=== PATIENT | female | born 1935 | race Caucasian/White ===

== ENCOUNTER 2016-07-03 20:23 | Inpatient (IN) | payer MEDICARE, OTHER ==
[~2016-07-03] VITALS: Ht 167.6 cm; Wt 67.1 kg
[~2016-07-03 20:23] MED LIST: DONE5TAB34 PO; NITR100C PO
[2016-07-03 21:10] LABS: BASOPHILS # (AUTO) 0.1 /CMM (0.0-0.2); BASOPHILS % (AUTO) 0.6 % (0.0-2.0); DIFF TOTAL % 100 %; EOSINOPHILS # (AUTO) 0.4 /CMM (0.0-0.7); EOSINOPHILS % (AUTO) 4.8 % (0.0-6.0); HEMATOCRIT 40 % (33-45); HEMOGLOBIN 13.4 g/dL (11.5-14.8); LYMPHOCYTES # (AUTO) 1.4 /CMM (0.8-4.8); LYMPHOCYTES % (AUTO) 16.2 % (20.0-44.0); MEAN CORPUSCULAR HEMOGLOBIN 29 PG (26.0-33.0); MEAN CORPUSCULAR HGB CONC 33 g/dl (31.0-36.0); MEAN CORPUSCULAR VOLUME 87 fL (82-100); MONOCYTES # (AUTO) 0.8 /CMM (0.1-1.30); MONOCYTES % (AUTO) 9.2 % (2.0-12.0); NEUTROPHILS % (AUTO) 69.2 % (43.0-81.0); PLATELET COUNT (AUTO) 130 /CMM (150-450); RED BLOOD CELL COUNT(AUTO) 4.65 MIL/uL (4.0-5.2); WHITE BLOOD COUNT (AUTO) 8.7 K/uL (4.3-11.0)
[2016-07-03 21:29] LABS: ANION GAP 11 (5-14); CALCIUM, SERUM 9.5 mg/dL (8.5-10.1); CARBON DIOXIDE 29 mmol/L (21-32); CHLORIDE 104 mmol/L (98-107); CREATININE 1.2 mg/dL (0.6-1.3); GLUCOSE 158 mg/dL (74-106); POTASSIUM 4.2 mmol/L (3.5-5.1); SODIUM SERUM 140 mmol/L (136-145); UREA NITROGEN, BLOOD 32 mg/dL (7-18)
[2016-07-03 21:32] LABS: INR 0.94 (0.87-1.13); PROTHROMBIN TIME 9.9 SECS (9.5-12.7)
[2016-07-03 21:35] LABS: ALANINE AMINOTRANSFERASE 17 U/L (12-78); ALBUMIN 3.3 g/dL (3.4-5.0); ASPARTATE AMINOTRANSFERASE 16 U/L (15-37); BILIRUBIN,DIRECT 0.1 mg/dL (0.0-0.2); BILIRUBIN,TOTAL 0.5 mg/dL (0.2-1.0); INDIRECT BILIRUBIN 0.4 mg/dL (0.0-1.1); TOTAL PROTEIN, SERUM 7.4 g/dL (6.4-8.2)
[2016-07-03 21:37] LABS: TROPONIN I < 0.017 ng/mL (0.00-0.056)
[2016-07-03 21:49] LABS: KETONES,URINE Negative (NEGATIVE); LEUKOCYTE ESTERASE ,URINE Trace (NEGATIVE)
[2016-07-03 21:56] LABS: ADD UA MICROSCOPIC YES
[2016-07-03 21:59] LABS: ADD URINE CULTURE YES; WBC,URINE 21-50 /HPF (0-3)
[2016-07-03 22:09] LABS: *LACTIC ACID REFLEX FLAG YES
[2016-07-03] MEDS ORDERED: IV NS 0.9% 500 ML IV ONE (22:36)
[2016-07-03] MEDS ORDERED: IV SET PRIMARY PUMP SET 1 EA INFUS.SET MC ONE (22:36)
[2016-07-03] MEDS ORDERED: LEVOFLOXACIN 750 MG /D5W 150ML 150 ML IV ONE ×2 (22:36→23:00)
[2016-07-03] MEDS ORDERED: DENO60DI SQ (22:47)
[2016-07-03] MEDS ORDERED: CLON0.5T4 PO (22:47)
[2016-07-03] MEDS ORDERED: AMLO5TAB2 PO (22:47)
[2016-07-03] MEDS ORDERED: QUET25TA PO (22:47)
[2016-07-03] MEDS ORDERED: IV NS 0.9% 500 ML BAG IV ONE (23:00)
[2016-07-04 00:30] VITALS: BP 118/54
[2016-07-04] MEDS ORDERED: ENOXAPARIN SODIUM 60 MG/0.6 ML DISP.SYRIN SQ ONE (01:36)
[2016-07-04] MEDS ORDERED: ENOXAPARIN SODIUM 60 MG/0.6 ML DISP.SYRIN SQ SCH ×2 (02:00→07:50)
[2016-07-04 07:52] LABS: CALCIUM, SERUM 8.6 mg/dL (8.5-10.1); CREATININE 0.9 mg/dL (0.6-1.3); POTASSIUM 4.2 mmol/L (3.5-5.1)
[2016-07-04 08:00] VITALS: BP 123/62
[2016-07-04] MEDS ORDERED: ACETAMINOPHEN 325 MG TABLET PO PRN (08:00)
[2016-07-04] MEDS ORDERED: ONDANSETRON HCL/PF 4 MG/2 ML VIAL IVP PRN (08:00)
[2016-07-04 08:05] LABS: BASOPHILS % (AUTO) 0.3 % (0.0-2.0); DIFF TOTAL % 100 %; EOSINOPHILS # (AUTO) 0.3 /CMM (0.0-0.7); EOSINOPHILS % (AUTO) 4.4 % (0.0-6.0); HEMATOCRIT 36 % (33-45); HEMOGLOBIN 11.9 g/dL (11.5-14.8); LYMPHOCYTES # (AUTO) 1.1 /CMM (0.8-4.8); LYMPHOCYTES % (AUTO) 14.1 % (20.0-44.0); MEAN CORPUSCULAR HEMOGLOBIN 29 PG (26.0-33.0); MEAN CORPUSCULAR HGB CONC 34 g/dl (31.0-36.0); MEAN CORPUSCULAR VOLUME 88 fL (82-100); MONOCYTES # (AUTO) 0.8 /CMM (0.1-1.30); NEUTROPHILS # (AUTO) 5.6 /CMM (1.8-8.9); NEUTROPHILS % (AUTO) 71.2 % (43.0-81.0); PLATELET COUNT (AUTO) 138 /CMM (150-450); RED BLOOD CELL COUNT(AUTO) 4.04 MIL/uL (4.0-5.2); WHITE BLOOD COUNT (AUTO) 7.9 K/uL (4.3-11.0)
[2016-07-04] MEDS: ENOXAPARIN SODIUM 60 MG/0.6 ML DISP.SYRIN SQ SCH ×2 (08:44→22:58)
[2016-07-04] MEDS: AMLODIPINE BESYLATE 5 MG TABLET PO SCH (13:16)
[2016-07-04] MEDS ORDERED: clonazePAM 0.5 MG TABLET PO PRN (13:30)
[2016-07-04 15:53] VITALS: BP 125/65
[2016-07-04 16:00] VITALS: BP 125/65
[2016-07-04] MEDS ORDERED: IOHEXOL-350 100 ML VIAL IV ONE (17:59)
[2016-07-04] MEDS ORDERED: IV NS 0.9% 250 ML IV ONE (17:59)
[2016-07-04] MEDS ORDERED: CT SWABBABLE VALVE TRANS SET 1 EA INFUS.SET MC ONE (17:59)
[2016-07-04] MEDS: QUETIAPINE FUMARATE 25 MG TABLET PO SCH (18:40)
[2016-07-04 20:00] VITALS: BP 131/63
[2016-07-04] MEDS ORDERED: LEVOFLOXACIN 500 MG /D5W 100ML 500 MG in PREMIX 1 EA IV SCH (22:00)
[2016-07-04] MEDS: DONEPEZIL 5 MG TABLET PO SCH (22:00)
[2016-07-04] MEDS ORDERED: IV SET PRIMARY PUMP SET 1 EA INFUS.SET MC ONE (22:52)
[2016-07-05 04:00] VITALS: BP 128/73
[2016-07-05] MEDS: QUETIAPINE FUMARATE 25 MG TABLET PO SCH ×4 (06:00→17:01)
[2016-07-05 06:43] LABS: BASOPHILS % (AUTO) 0.5 % (0.0-2.0); DIFF TOTAL % 100 %; EOSINOPHILS # (AUTO) 0.3 /CMM (0.0-0.7); EOSINOPHILS % (AUTO) 5.2 % (0.0-6.0); HEMATOCRIT 37 % (33-45); HEMOGLOBIN 12.2 g/dL (11.5-14.8); LYMPHOCYTES % (AUTO) 15.5 % (20.0-44.0); MEAN CORPUSCULAR HEMOGLOBIN 29 PG (26.0-33.0); MEAN CORPUSCULAR HGB CONC 33 g/dl (31.0-36.0); MEAN CORPUSCULAR VOLUME 87 fL (82-100); MONOCYTES # (AUTO) 0.6 /CMM (0.1-1.30); MONOCYTES % (AUTO) 9.5 % (2.0-12.0); NEUTROPHILS # (AUTO) 4.6 /CMM (1.8-8.9); NEUTROPHILS % (AUTO) 69.3 % (43.0-81.0); PLATELET COUNT (AUTO) 157 /CMM (150-450); WHITE BLOOD COUNT (AUTO) 6.7 K/uL (4.3-11.0)
[2016-07-05 06:55] LABS: CALCIUM, SERUM 8.2 mg/dL (8.5-10.1); CREATININE 0.9 mg/dL (0.6-1.3); POTASSIUM 3.7 mmol/L (3.5-5.1)
[2016-07-05 08:00] VITALS: BP 125/64
[2016-07-05] MEDS: PANTOPRAZOLE 40 MG TABLET.DR PO SCH (08:13)
[2016-07-05] MEDS: ENOXAPARIN SODIUM 60 MG/0.6 ML DISP.SYRIN SQ SCH ×2 (08:13→22:53)
[2016-07-05] MEDS: AMLODIPINE BESYLATE 5 MG TABLET PO SCH (08:13)
[2016-07-05] MEDS: SULFAMETH/TRIMETH 800/160 MG 1 UDTAB TABLET PO SCH ×2 (13:32→22:52)
[2016-07-05 16:00] VITALS: BP 116/63
[2016-07-05 20:00] VITALS: BP_SYST 111; BP_DIAS 46; BP_DIAS 66
[2016-07-05] MEDS: DONEPEZIL 5 MG TABLET PO SCH (22:52)
[2016-07-06] MEDS: QUETIAPINE FUMARATE 25 MG TABLET PO SCH ×4 (00:59→18:01)
[2016-07-06 04:00] VITALS: BP 120/66
[2016-07-06 06:39] LABS: BASOPHILS % (AUTO) 0.5 % (0.0-2.0); DIFF TOTAL % 100 %; EOSINOPHILS # (AUTO) 0.3 /CMM (0.0-0.7); EOSINOPHILS % (AUTO) 5.3 % (0.0-6.0); HEMATOCRIT 38 % (33-45); HEMOGLOBIN 12.5 g/dL (11.5-14.8); LYMPHOCYTES # (AUTO) 1.4 /CMM (0.8-4.8); LYMPHOCYTES % (AUTO) 25.6 % (20.0-44.0); MEAN CORPUSCULAR HEMOGLOBIN 29 PG (26.0-33.0); MEAN CORPUSCULAR HGB CONC 33 g/dl (31.0-36.0); MEAN CORPUSCULAR VOLUME 87 fL (82-100); MONOCYTES # (AUTO) 0.6 /CMM (0.1-1.30); NEUTROPHILS # (AUTO) 3.1 /CMM (1.8-8.9); NEUTROPHILS % (AUTO) 57.6 % (43.0-81.0); PLATELET COUNT (AUTO) 161 /CMM (150-450); WHITE BLOOD COUNT (AUTO) 5.4 K/uL (4.3-11.0)
[2016-07-06 06:48] LABS: CALCIUM, SERUM 8.4 mg/dL (8.5-10.1); CREATININE 1.1 mg/dL (0.6-1.3); POTASSIUM 4.1 mmol/L (3.5-5.1)
[2016-07-06 08:00] VITALS: BP 110/56
[2016-07-06] MEDS: AMLODIPINE BESYLATE 5 MG TABLET PO SCH (09:00)
[2016-07-06] MEDS: ENOXAPARIN SODIUM 60 MG/0.6 ML DISP.SYRIN SQ SCH ×2 (09:48→21:28)
[2016-07-06] MEDS: PANTOPRAZOLE 40 MG TABLET.DR PO SCH (09:48)
[2016-07-06] MEDS: SULFAMETH/TRIMETH 800/160 MG 1 UDTAB TABLET PO SCH ×2 (09:50→21:27)
[2016-07-06 16:00] VITALS: BP 132/56
[2016-07-06 20:00] VITALS: BP 135/66
[2016-07-06] MEDS: DONEPEZIL 5 MG TABLET PO SCH (21:27)
[2016-07-07] MEDS: QUETIAPINE FUMARATE 25 MG TABLET PO SCH ×3 (00:19→12:20)
[2016-07-07 08:00] VITALS: BP 138/66
[2016-07-07 08:39] VITALS: BP 138/66
[2016-07-07] MEDS: AMLODIPINE BESYLATE 5 MG TABLET PO SCH (08:39)
[2016-07-07] MEDS: SULFAMETH/TRIMETH 800/160 MG 1 UDTAB TABLET PO SCH (08:39)
[2016-07-07] MEDS: PANTOPRAZOLE 40 MG TABLET.DR PO SCH (08:40)
[2016-07-07] MEDS: ENOXAPARIN SODIUM 60 MG/0.6 ML DISP.SYRIN SQ SCH (08:40)
== END 2016-07-07 12:37 | DRG 299 ==
LOC: ER 20:24 → MED 23:49
PROVIDERS: ADMIT Legal Medicine; ATTEND Legal Medicine
DX: I82.411 Acute embolism and thrombosis of right femoral vein (principal); I26.99 Other pulmonary embolism without acute cor pulmonale; N39.0 Urinary tract infection, site not specified; M48.54XA Collapsed vertebra, not elsewhere classified, thoracic region, initial encounter for fracture; I82.431 Acute embolism and thrombosis of right popliteal vein; D64.9 Anemia, unspecified; E78.5 Hyperlipidemia, unspecified; F03.90 Unspecified dementia, unspecified severity, without behavioral disturbance, psychotic disturbance, mood disturbance, and anxiety; I10 Essential (primary) hypertension; D18.03 Hemangioma of intra-abdominal structures; N28.1 Cyst of kidney, acquired
CPT/HCPCS: 36415; 71010-TC; 73590-TC; 80048-TC; 80076-TC; 81000-TC; 83605-TC; 84484-TC; 85025-TC; 85730-TC; 87040-TC; 87081-TC; 87086-TC; 87186-TC; 93971-TC; A4216; A4606; J1650; J1956; J7040; J7050; Q9967; Z7610

== ENCOUNTER 2016-12-23 15:46 | Inpatient (IN) | payer MEDICARE, OTHER ==
[~2016-12-23] VITALS: Ht 160 cm; Wt 58.1 kg
[~2016-12-23 15:46] MED LIST changes: +AMLO5TAB2 PO; +CLON0.5T4 PO; +DENO60DI SQ; +QUET25TA PO
--- NOTE | 2016-12-23 16:00 | NUR ---
PATIENT BIB DAUGHTER C/O PATIENT BEING CONFUSED AND UNABLE TO CARE FOR SELF. PATIENT IS A/OX 1-2. BREATHING EVEN AND UNLABORED ON ROOM AIR. NO SOB. NO DISTRESS. VITALS STABLE. AWAITING MD ORDERS.
[2016-12-23 16:30] LABS: BASOPHILS # (AUTO) 0.1 /CMM (0.0-0.2); BASOPHILS % (AUTO) 1.4 % (0.0-2.0); EOSINOPHILS # (AUTO) 0.2 /CMM (0.0-0.7); EOSINOPHILS % (AUTO) 2.5 % (0.0-6.0); HEMATOCRIT 47 % (33-45); HEMOGLOBIN 15.3 g/dL (11.5-14.8); LYMPHOCYTES # (AUTO) 1.6 /CMM (0.8-4.8); LYMPHOCYTES % (AUTO) 25.8 % (20.0-44.0); MEAN CORPUSCULAR HEMOGLOBIN 29 PG (26.0-33.0); MEAN CORPUSCULAR HGB CONC 33 g/dl (31.0-36.0); MEAN CORPUSCULAR VOLUME 87 fL (82-100); MONOCYTES # (AUTO) 0.6 /CMM (0.1-1.30); MONOCYTES % (AUTO) 10.3 % (2.0-12.0); NEUTROPHILS # (AUTO) 3.7 /CMM (1.8-8.9); PLATELET COUNT (AUTO) 239 /CMM (150-450); RDW COEFFICIENT OF VARIATION 13.6 (11.5-15.0); RED BLOOD CELL COUNT(AUTO) 5.36 MIL/uL (4.0-5.2); WHITE BLOOD COUNT (AUTO) 6.2 K/uL (4.3-11.0)
[2016-12-23 16:38] LABS: CALCIUM, SERUM 9.7 mg/dL (8.5-10.1); CARBON DIOXIDE 29 mmol/L (21-32); CHLORIDE 101 mmol/L (98-107); CREATININE 0.9 mg/dL (0.6-1.3); GLUCOSE 91 mg/dL (74-106); SODIUM SERUM 137 mmol/L (136-145); UREA NITROGEN, BLOOD 15 mg/dL (7-18)
[2016-12-23 16:47] LABS: THYROID STIMULATING HORMONE 1.504 uIU/mL (0.358-3.74)
[2016-12-23] MEDS ORDERED: ASPI81TA2 PO (16:49)
--- NOTE | 2016-12-23 17:02 | NUR ---
CALLED [employer] - RYAN ETA OF 1 HR WAS GIVEN
--- NOTE | 2016-12-23 18:15 | NUR ---
PATIENT PLACED ON HOLD 5150, D/T GD. PATIENT TO BE ADMITTED TO GPS, 219.
[2016-12-23 18:44] LABS: APPEARANCE,URINE Slightly Cloudy (CLEAR); BILIRUBIN,URINE Negative (NEGATIVE); BLOOD, URINE Trace-intact Ery/uL (NEGATIVE); COLOR,URINE Yellow (YELLOW); KETONES,URINE Negative (NEGATIVE); LEUKOCYTE ESTERASE ,URINE Small (NEGATIVE); NITRITE, URINE Negative (NEGATIVE); PROTEIN,URINE Negative (NEGATIVE); UGLUCOSE Negative (NEGATIVE); UROBILINOGEN,URINE 0.2 EU/dL (0.2)
--- NOTE | 2016-12-23 19:00 | NUR ---
REPORT GIVEN TO RNLATOSHA IN GPS. PATIENT TRANSFERRED TO [facility] VIA STRETCHER.
[2016-12-23 19:06] LABS: BACTERIA,URINE Many /HPF (None Seen); MUCUS,URINE Few /LPF (None Seen); RBC,URINE 2-4/HPF /HPF (0-2); SQUAMOUS EPITHELIAL CELL,UR Few /HPF (None Seen); URINE AMORPHOUS URATE Moderate /HPF (None Seen); WBC,URINE 51-80 /HPF (0-3)
[2016-12-23 19:30] VITALS: BP 149/73
--- NOTE | 2016-12-23 19:30 | NUR ---
GPS RN OPENING NOTES: ADMISSION OF AN 81YO WHITE FEMALE FROM AN ASSISTED LIVING FACILITY ON 5150 HOLD FOR GD. PER HOLD THE PATIENT WAS INCREASINGLY CONFUSED, ODD BEHAVIOR AND OFF HER MEDICATIONS. PATIENT WANDERS FROM THE FACILITY WITH NO REGARDS TO HER SAFETY. PATIENT WILL BE UNDER THE CARE OF DR. RODAS AND DR. MOON. UPON FACE TO FACE EVALUATION PATIENT IS ALERT AND ORIENTED X1-2 , CONFUSED, DISORGANIZED, DISHEVELED, UNKEMPT HAS SOME DELUSIONS. PATIENTS POCKETS WERE EMPTIED IT IS FULL OF TRASH. PATIENT CAME THE UNIT WITH HER DAUGHTER ANJUM. ACCORDING TO THE DAUGHTER, HER MOTHER FELL OFF A WAIVER PROGRAM WHILE AT [facility] AND THAT AFTER A 90 DAY PERIOD SHE WAS ADMITTED AT AN ASSISTED LIVING FACILITY WHERE SOME OF HER MEDICATIONS WERE NOT CONTINUED. PATIENT THEN BECAME CONFUSED AND EVENTUALLY WANDERED FROM THE FACILITY. PATIENT ABLE TO STATE HER NAME ONLY. UNABLE TO PROVIDE HER MONTH OF . REALITY ORIENTATION DONE. ORIENTATION TO UNIT, STAFF, CARE PLAN AND DOCTORS DONE. SKIN AND BODY ASSESSMENT DONE WITH BRYANT RICHMOND. PICTURES TAKEN AND PLACED IN CHART. BELONGINGS AND CONTRABAND CHECKED. DAUGHTER REMINDED OF THE VISITING HOURS AND THE STUFF THAT THEY CAN BRING FOR THE PATIENT. Q15 MIN CHECKS INITIATED. CARE PLAN SPECIFIC FOR PATIENT STARTED. SAFETY AND FALL PRECAUTIONS OBSERVED. Z GUARD ORDERED FOR PATIENT'S SACRAL REDNESS. PLACED CALL SANDS WITHIN PATIENT'S REACH. TOILETRIES AND SNACKS PROVIDED. WILL MONITOR PATIENT FOR MOOD, SAFETY AND BEHAVIOR.
[2016-12-23] MEDS ORDERED: ACETAMINOPHEN 325 MG TABLET PO PRN (20:30)
[2016-12-23] MEDS ORDERED: TEMAZEPAM 7.5 MG CAPSULE PO PRN (20:30)
[2016-12-23] MEDS ORDERED: clonazePAM 0.5 MG TABLET PO PRN (20:30)
[2016-12-23] MEDS ORDERED: MAGNESIUM HYDROXIDE 30 ML UDC PO PRN (20:30)
[2016-12-23] MEDS ORDERED: MAG HYDROX/AL HYDROX/SIMETH 30 ML UDC PO PRN (20:30)
[2016-12-23] MEDS ORDERED: Z GUARD REMEDY 2 OZ OINT TP PRN (22:00)
[2016-12-24 07:31] LABS: CREATININE 0.9 mg/dL (0.6-1.3)
[2016-12-24 08:00] VITALS: BP 148/83
[2016-12-24 08:07] LABS: CHOLESTEROL 219 mg/dL (<200); HDL CHOLESTEROL 66 mg/dL (40-60); LDL 127 mg/dL (0-99); TRIGLYCERIDES 53 mg/dL (30-150)
[2016-12-24] MEDS ORDERED: clonazePAM 0.5 MG TABLET PO SCH (11:30)
[2016-12-24] MEDS: DONEPEZIL 5 MG TABLET PO SCH ×2 (11:56→21:03)
[2016-12-24] MEDS: ASPIRIN 81 MG TAB.CHEW PO SCH (11:56)
[2016-12-24] MEDS: QUETIAPINE FUMARATE 25 MG TABLET PO SCH ×2 (17:52→21:03)
[2016-12-24 20:50] VITALS: BP 140/77
[2016-12-24] MEDS: CEPHALEXIN MONOHYDRATE 500 MG CAPSULE PO SCH (20:55)
[2016-12-24] MEDS: DIVALPROEX SODIUM 125 MG CAP.SPRINK PO SCH (20:55)
[2016-12-25 08:00] VITALS: BP 140/75
[2016-12-25] MEDS: DIVALPROEX SODIUM 125 MG CAP.SPRINK PO SCH ×2 (08:12→20:17)
[2016-12-25] MEDS: CEPHALEXIN MONOHYDRATE 500 MG CAPSULE PO SCH ×2 (08:12→20:17)
[2016-12-25] MEDS: QUETIAPINE FUMARATE 25 MG TABLET PO SCH ×3 (08:12→21:00)
[2016-12-25] MEDS: ASPIRIN 81 MG TAB.CHEW PO SCH (08:12)
--- NOTE | 2016-12-25 11:35 | NUR ---
Initial discharge plan: Pt. resides at [address] [address] . Daughter, Oxana [phone] states pt. cannot return as she is not on her assisted living waiver program anymore and it takes time for her to be on it. 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 SW will follow up with MD and daughter and will find a more appropriate facility and will help form a safe and proper discharge.
--- NOTE | 2016-12-25 15:25 | NUR ---
VINCENT sent a referral to [facility] [address] [address], [place] [address] . will follow up Addendum: 12/26/16 at 1158 by ABDIAZIZ KAUR Per Edy at the facility, pt can be accepted.
[2016-12-25 16:00] VITALS: BP 152/75
[2016-12-25 20:06] VITALS: BP 146/69
[2016-12-25] MEDS: DONEPEZIL 5 MG TABLET PO SCH (21:00)
[2016-12-26 08:18] VITALS: BP 122/63
[2016-12-26] MEDS: CEPHALEXIN MONOHYDRATE 500 MG CAPSULE PO SCH ×2 (08:37→20:14)
[2016-12-26] MEDS: DIVALPROEX SODIUM 125 MG CAP.SPRINK PO SCH ×2 (08:37→20:14)
[2016-12-26] MEDS: QUETIAPINE FUMARATE 25 MG TABLET PO SCH ×2 (08:37→16:49)
[2016-12-26] MEDS: ASPIRIN 81 MG TAB.CHEW PO SCH (08:37)
--- NOTE | 2016-12-26 11:59 | NUR ---
Pt's daughter, Oxana [phone] was notified of pt's acceptance to the nursing home facility, [facility] [address] [place] [address] and she was very happy and agreeable with the plan.
[2016-12-26 16:34] VITALS: BP 131/65
[2016-12-26 20:00] VITALS: BP 113/51
[2016-12-26] MEDS: DONEPEZIL 5 MG TABLET PO SCH (21:10)
[2016-12-27 08:00] VITALS: BP 121/54
[2016-12-27] MEDS: DIVALPROEX SODIUM 125 MG CAP.SPRINK PO SCH ×2 (08:38→20:16)
[2016-12-27] MEDS: CEPHALEXIN MONOHYDRATE 500 MG CAPSULE PO SCH ×2 (08:38→20:16)
[2016-12-27] MEDS: QUETIAPINE FUMARATE 25 MG TABLET PO SCH ×2 (08:38→16:13)
[2016-12-27] MEDS: ASPIRIN 81 MG TAB.CHEW PO SCH (08:38)
[2016-12-27 16:00] VITALS: BP 125/61
[2016-12-27 20:00] VITALS: BP 121/91
[2016-12-27] MEDS: DONEPEZIL 5 MG TABLET PO SCH (21:36)
[2016-12-28 08:00] VITALS: BP 120/58
[2016-12-28] MEDS: QUETIAPINE FUMARATE 25 MG TABLET PO SCH ×2 (09:20→16:19)
[2016-12-28] MEDS: DIVALPROEX SODIUM 125 MG CAP.SPRINK PO SCH ×2 (09:20→20:21)
[2016-12-28] MEDS: ASPIRIN 81 MG TAB.CHEW PO SCH (09:20)
[2016-12-28] MEDS: CEPHALEXIN MONOHYDRATE 500 MG CAPSULE PO SCH ×2 (09:20→20:21)
[2016-12-28 16:00] VITALS: BP 136/76
[2016-12-28 20:00] VITALS: BP 137/56
[2016-12-28] MEDS: DONEPEZIL 5 MG TABLET PO SCH (21:40)
[2016-12-29 08:33] VITALS: BP 114/64
[2016-12-29] MEDS: QUETIAPINE FUMARATE 25 MG TABLET PO SCH ×2 (09:15→16:51)
[2016-12-29] MEDS: DIVALPROEX SODIUM 125 MG CAP.SPRINK PO SCH ×2 (09:15→20:12)
[2016-12-29] MEDS: CEPHALEXIN MONOHYDRATE 500 MG CAPSULE PO SCH ×2 (09:15→20:12)
[2016-12-29] MEDS: ASPIRIN 81 MG TAB.CHEW PO SCH (09:15)
[2016-12-29 16:00] VITALS: BP 157/76
[2016-12-29 20:02] VITALS: BP 155/71
--- NOTE | 2016-12-29 20:28 | NUR ---
GPS/RN NOTE: COMFORTABLE RESTING IN BED, AWAKE, ALERT, ORIENTED X3. PLEASANT AND COOPERATIVE. SKIN ASSESSMENT DONE WITH PHOTOS. WILL CONTINUE TO MONITOR.
[2016-12-29] MEDS: DONEPEZIL 5 MG TABLET PO SCH (21:10)
[2016-12-30 08:00] VITALS: BP 115/65
[2016-12-30] MEDS: ASPIRIN 81 MG TAB.CHEW PO SCH (08:28)
[2016-12-30] MEDS: QUETIAPINE FUMARATE 25 MG TABLET PO SCH ×2 (08:28→16:18)
[2016-12-30] MEDS: CEPHALEXIN MONOHYDRATE 500 MG CAPSULE PO SCH ×2 (08:28→21:45)
[2016-12-30] MEDS: DIVALPROEX SODIUM 125 MG CAP.SPRINK PO SCH ×2 (08:28→16:18)
[2016-12-30 16:00] VITALS: BP 133/60
[2016-12-30] MEDS ORDERED: ONDANSETRON HCL 4 MG/5 ML SOLUTION PO PRN (16:30)
[2016-12-30 19:45] VITALS: BP 120/63
[2016-12-30] MEDS: DONEPEZIL 5 MG TABLET PO SCH (21:45)
--- NOTE | 2016-12-31 06:28 | NUR ---
RN GPS NOTE PT .REMAINED IN STABLE CONDITION RESTING IN HER BED ,NO ACUTE DISTRESS NOTED ATTENDED ALL NEEDS AND ANTICIPATED ,WILL ENDORSE TO NEXT SHIFT FOR CONTINUITY OF CARE
[2016-12-31] MEDS: ASPIRIN 81 MG TAB.CHEW PO SCH (08:17)
[2016-12-31] MEDS: CEPHALEXIN MONOHYDRATE 500 MG CAPSULE PO SCH ×2 (08:17→21:50)
[2016-12-31] MEDS: QUETIAPINE FUMARATE 25 MG TABLET PO SCH ×2 (08:17→16:27)
[2016-12-31] MEDS: DIVALPROEX SODIUM 125 MG CAP.SPRINK PO SCH ×3 (08:17→16:27)
--- NOTE | 2016-12-31 15:39 | NUR ---
SW followed up with MD and pt. will be ready for transfer to , [place] [id number] [place] [address] on , 01/02/17.
[2016-12-31 16:00] VITALS: BP 115/57
--- NOTE | 2016-12-31 19:30 | NUR ---
GPS RN NOTE, RECEIVED PATIENT AWAKE AND IN DINNING ROOM, NO S/S OR COMPLAINTS OF PAIN AT THIS TIME. PATIENT IS DISPLAYING NO S/S OF APPARENT DISTRESS AT THIS TIME. PATIENT BREATHING IS UNLABORED WITH EQUAL RISE AND FALL OF THE CHEST. PATIENT IS ALERT AND ORIENTED X 2 ON ROOM AIR WITH A SPO2 95%. PATIENT COMPLAINT WITH MEDICATION, ANXIOUS, COOPERATIVE, CONFUSED AT TIMES, BRIGHT AFFECT, AND NEEDS REORIENTATION. PATIENT DENIES SUICIDE AND HOMICIDAL IDEATIONS AT THIS TIME. PATIENT ASSISTED WITH TURNING AND REPOSITIONING Q2HR AND PRN FOR COMFORT AND CIRCULATION. PATIENT HAS NO NEEDS AT THIS TIME. PATIENT EDUCATED ON THE USE OF THE CALL SANDS. PATIENT BED SIDE RAILS UP X2 FOR SAFETY, BED IS LOCKED AND LOW WILL CONTINUE TO MONITOR AND MAINTAIN SAFETY.
[2016-12-31 21:21] VITALS: BP 113/51
[2016-12-31] MEDS: DONEPEZIL 5 MG TABLET PO SCH (21:50)
[2017-01-01 08:13] VITALS: BP 132/74
[2017-01-01] MEDS: QUETIAPINE FUMARATE 25 MG TABLET PO SCH ×3 (08:30→16:26)
[2017-01-01] MEDS: DIVALPROEX SODIUM 125 MG CAP.SPRINK PO SCH ×4 (08:30→17:00)
[2017-01-01] MEDS: ASPIRIN 81 MG TAB.CHEW PO SCH (08:31)
[2017-01-01] MEDS: CEPHALEXIN MONOHYDRATE 500 MG CAPSULE PO SCH (08:31)
--- NOTE | 2017-01-01 14:58 | NUR ---
VINCENT notified pt's daughter, Oxana [phone] about pt's discharge tomorrow. Oxana agreed.
[2017-01-01 16:00] VITALS: BP 150/73
--- NOTE | 2017-01-01 19:30 | NUR ---
RN NOTE; RECEIVED PT IN BED AWAKE AND RESPONSIVE. CALM AND QUIET FOR NOW. BREATHING EVENLY. NO SOB. NAD. NO S/S OR C/O PAIN OR DISCOMFORT. UNDER CLOSE SUPERVISION FOR SAFETY . BED LOW LOCKED. NEEDS ATTENDED. WILL CONT TO MONITOR.
[2017-01-01 20:00] VITALS: BP 137/69
--- NOTE | 2017-01-01 20:18 | NUR ---
RESTORIL GIVEN ORDERED PER PT'S REQUEST FOR INSOMNIA. CALM, QUIET AND COMFORTABLE ENVIRONMENT WAS PROVIDED FOR THE PT WILL CONT TO MONITOR.
[2017-01-01] MEDS: DONEPEZIL 5 MG TABLET PO SCH (21:21)
--- NOTE | 2017-01-02 06:18 | NUR ---
RN NOTE; PT IN BED AWAKE AND ALERT. BREATHING EVENLY. NO SOB.; NAD. NO ACUTE CHANGES OVER THE NIGHT. HAD A GOOD NIGHT SLEEP. W/ NO C/O PAIN OR DISCOMFORT. NO BEHAVIORAL OR PSYCH ISSUES. WILL CONT TO MONITOR AND WILL ENDORSE TO AM SHIFT FOR JOSE A.
[2017-01-02 07:12] LABS: BASOPHILS % (AUTO) 0.6 % (0.0-2.0); EOSINOPHILS # (AUTO) 0.3 /CMM (0.0-0.7); EOSINOPHILS % (AUTO) 4.3 % (0.0-6.0); HEMATOCRIT 41 % (33-45); HEMOGLOBIN 13.9 g/dL (11.5-14.8); LYMPHOCYTES # (AUTO) 1.5 /CMM (0.8-4.8); LYMPHOCYTES % (AUTO) 23.9 % (20.0-44.0); MEAN CORPUSCULAR HEMOGLOBIN 30 PG (26.0-33.0); MEAN CORPUSCULAR HGB CONC 34 g/dl (31.0-36.0); MEAN CORPUSCULAR VOLUME 89 fL (82-100); MONOCYTES # (AUTO) 0.6 /CMM (0.1-1.30); MONOCYTES % (AUTO) 9.3 % (2.0-12.0); NEUTROPHILS # (AUTO) 3.8 /CMM (1.8-8.9); NEUTROPHILS % (AUTO) 61.9 % (43.0-81.0); PLATELET COUNT (AUTO) 178 /CMM (150-450); RDW COEFFICIENT OF VARIATION 13.7 (11.5-15.0); RED BLOOD CELL COUNT(AUTO) 4.68 MIL/uL (4.0-5.2); WHITE BLOOD COUNT (AUTO) 6.2 K/uL (4.3-11.0)
[2017-01-02 07:19] LABS: CALCIUM, SERUM 9.3 mg/dL (8.5-10.1); CARBON DIOXIDE 29 mmol/L (21-32); CHLORIDE 100 mmol/L (98-107); CREATININE 0.9 mg/dL (0.6-1.3); GLUCOSE 98 mg/dL (74-106); POTASSIUM 4.4 mmol/L (3.5-5.1); SODIUM SERUM 136 mmol/L (136-145); UREA NITROGEN, BLOOD 22 mg/dL (7-18)
[2017-01-02] MEDS: QUETIAPINE FUMARATE 25 MG TABLET PO SCH (08:39)
[2017-01-02] MEDS: DIVALPROEX SODIUM 125 MG CAP.SPRINK PO SCH (08:39)
[2017-01-02] MEDS: ASPIRIN 81 MG TAB.CHEW PO SCH (08:39)
--- NOTE | 2017-01-02 09:15 | NUR ---
RN-CO: DR MOON GAVE AN ORDER FOR DISCHARGE AND TO DISCONTINUE HOLD VIA PHONE CALL. NOTED AND CARRIED OUT. PATIENT REMAINS CALM AND COOPERATIVE TO CARE. BRIGHT AFFECT, DENIED SUICIDAL AND HOMICIDAL IDEATION.
--- NOTE | 2017-01-02 11:00 | NUR ---
RN-CO: DR RODAS SEEN AND EXAMINED THE PATIENT, MEDICALLY CLEARED HER FOR DISCHARGE.
--- NOTE | 2017-01-02 12:40 | NUR ---
RN-CO: REPORT WAS GIVEN TO RN IN [facility], "JO ANN." ALL BELONGINGS WAS PREPARED AND WILL BE GIVEN BACK TO THE PATIENT.
--- NOTE | 2017-01-02 12:45 | NUR ---
GPS/RN PATIENT CLEARED FOR D/C TO [facility] BY DR MOON AND DR RODAS.. MEDICATIONS RECONCILED BY BOTH DR'S, ALL D/C PAPERWORK SIGNED, PACKET AND MEDICATIONS EXPLAINED TO PATIENT, VERBALIZED UNDERSTANDING, BELONGINGS RETURNED AND SIGNED FOR BY PATIENT, D/C PICTURES TAKEN, PATIENT DENIES SI/HI/AH AT TIME OF DISCHARGE, PSYCHIATRIC TREATMENT PLANS MET, REPORT CALLED TO JO ANN AT FACILITY,LEFT UNIT CALM, COOPERATIVE, NO DISTRESS WITH EMT AT SIDE.
--- NOTE | 2017-01-02 13:49 | NUR ---
RN-CO:[id number] PT WAS PICKED UP BY [facility] WITH ALL HER BELONGINGS AND SHE VERBALIZED UNDERSTANIDNG REGARDING HER DISCHARGE PAPERS. DAUGHTER , CHERYL MADE AWARE BY WARD ATTENDANT REGARDING HER DISCHARGE.
--- NOTE | 2017-01-02 15:02 | NUR ---
Discharge note: Pt. discharged to [facility] [address] [place] [address] via [facility]. Pt's daughter, Oxana [phone] was notified and agreed. Pt. also agreed, was calm and cooperative, denied suicidal/homicidal ideations. Pt's discharge information has been provided to the accepting facility and discharge paperwork has been signed. Pt. will be followed up by Dr. Thomas at the facility.
== END 2017-01-02 13:10 | DRG 881 ==
LOC: ER 15:47 → GPS 18:40
PROVIDERS: ADMIT Psychiatry & Neurology Psychiatry; ATTEND Legal Medicine
DX: F32.9 Major depressive disorder, single episode, unspecified (principal); F02.81 Dementia in other diseases classified elsewhere, unspecified severity, with behavioral disturbance; N39.0 Urinary tract infection, site not specified; G30.9 Alzheimer's disease, unspecified; F29 Unspecified psychosis not due to a substance or known physiological condition; I10 Essential (primary) hypertension; Z79.899 Other long term (current) drug therapy; D64.9 Anemia, unspecified; Z86.718 Personal history of other venous thrombosis and embolism; F02.80 Dementia in other diseases classified elsewhere, unspecified severity, without behavioral disturbance, psychotic disturbance, mood disturbance, and anxiety; B96.20 Unspecified Escherichia coli [E. coli] as the cause of diseases classified elsewhere
CPT/HCPCS: 36415; 80048-TC; 80061-TC; 81000-TC; 82565-TC; 84443-TC; 85025-TC; 87081-TC; 87086-TC; 87186-TC; A4606; Q0162; Z7610

== ENCOUNTER 2017-03-14 08:59 | Emergency (ER) | payer MEDICARE ==
[~2017-03-14] VITALS: Ht 165.1 cm; Wt 62.6 kg
[~2017-03-14 08:59] MED LIST changes: -AMLO5TAB2 PO; +ASPI81TA2 PO; -DENO60DI SQ; -NITR100C PO; -QUET25TA PO
--- NOTE | 2017-03-14 09:09 | NUR ---
BIB [facility] FROM [facility] C/O BACK PAIN. PER PMD, R/O NEW VS OLD T11 COMPRESSION FRACUTRE . PATIENT A/OX 4. BREATHING EVEN AND UNLABORED. NO SOB. VITALS STABLE. SAFETTY AND COMFORT MEASURES IN PLACE. AWAITING MD ORDERS.
--- NOTE | 2017-03-14 09:12 | NUR ---
PATIENT TAKEN TO CT VIA STRETCHER.
[2017-03-14] MEDS ORDERED: QUET25TA PO (09:13)
[2017-03-14] MEDS ORDERED: DIVA250T4 PO (09:13)
[2017-03-14] MEDS ORDERED: ACET-868 PO (09:13)
[2017-03-14] MEDS ORDERED: DIPH25CA6 PO (09:17)
[2017-03-14] MEDS ORDERED: CLOT15CR4 TP (09:17)
--- NOTE | 2017-03-14 09:31 | NUR ---
PATIENT RETURNED FROM CT IN STABLE CONDITION.
--- NOTE | 2017-03-14 11:00 | NUR ---
CALLED FOR AMB PICKUP ETA 1200
[2017-03-14 12:40] VITALS: BP 155/75
--- NOTE | 2017-03-14 12:41 | NUR ---
Patient discharged back to [facility] in stable condition via stretcher. Written and verbal after care instructions given. Report given to EMT at bedside.
== END 2017-03-14 12:41 ==
LOC: ER 09:01
DX: S32.009A Unspecified fracture of unspecified lumbar vertebra, initial encounter for closed fracture (principal); S22.009A Unspecified fracture of unspecified thoracic vertebra, initial encounter for closed fracture; I10 Essential (primary) hypertension; F03.90 Unspecified dementia, unspecified severity, without behavioral disturbance, psychotic disturbance, mood disturbance, and anxiety; Z79.82 Long term (current) use of aspirin; Z88.0 Allergy status to penicillin; W18.39XA Other fall on same level, initial encounter; Y93.89 Activity, other specified; Y92.89 Other specified places as the place of occurrence of the external cause; Y99.9 Unspecified external cause status
CPT/HCPCS: 72128; 72131; 99285; A4606; Z7610

== ENCOUNTER 2017-04-02 12:53 | Inpatient (IN) | payer MEDICARE, MEDICAID ==
[~2017-04-02] VITALS: Ht 165.1 cm; Wt 63.0 kg
[~2017-04-02 12:53] MED LIST changes: +ACET-868 PO; -CLON0.5T4 PO; +CLOT15CR4 TP; +DIPH25CA6 PO; +DIVA250T4 PO; +QUET25TA PO
[2017-04-02] MEDS ORDERED: ONDANSETRON HCL/PF 4 MG/2 ML VIAL IVP ONE (13:00)
[2017-04-02] MEDS ORDERED: MORPHINE SULFATE INJ 2 MG/ML DISP.SYRIN IV ONE (13:00)
[2017-04-02] MEDS ORDERED: IV NS 0.9% 500 ML BAG IV ONE (13:00)
[2017-04-02 13:13] LABS: BASOPHILS # (AUTO) 0.5 /CMM (0.0-0.2); BASOPHILS % (AUTO) 3.7 % (0.0-2.0); EOSINOPHILS % (AUTO) 0.1 % (0.0-6.0); HEMATOCRIT 43 % (33-45); HEMOGLOBIN 14.2 g/dL (11.5-14.8); LYMPHOCYTES % (AUTO) 7.1 % (20.0-44.0); MEAN CORPUSCULAR HEMOGLOBIN 30 PG (26.0-33.0); MEAN CORPUSCULAR HGB CONC 33 g/dl (31.0-36.0); MEAN CORPUSCULAR VOLUME 89 fL (82-100); MONOCYTES # (AUTO) 0.6 /CMM (0.1-1.30); MONOCYTES % (AUTO) 4.2 % (2.0-12.0); NEUTROPHILS % (AUTO) 84.9 % (43.0-81.0); PLATELET COUNT (AUTO) 244 /CMM (150-450); RDW COEFFICIENT OF VARIATION 13.4 (11.5-15.0); RED BLOOD CELL COUNT(AUTO) 4.82 MIL/uL (4.0-5.2); WHITE BLOOD COUNT (AUTO) 14.1 K/uL (4.3-11.0)
[2017-04-02] MEDS ORDERED: ONDANSETRON HCL/PF 4 MG/2 ML VIAL ONE (13:16)
[2017-04-02] MEDS ORDERED: MORPHINE SULFATE INJ 4 MG/ML DISP.SYRIN ONE (13:17)
[2017-04-02 13:38] LABS: CARBON DIOXIDE 26 mmol/L (21-32); CHLORIDE 108 mmol/L (98-107); CREATININE 0.9 mg/dL (0.6-1.3); GLUCOSE 141 mg/dL (74-106); INR 0.94 (0.87-1.13); POTASSIUM 4.2 mmol/L (3.5-5.1); PROTHROMBIN TIME 9.8 SECS (9.5-12.7); SODIUM SERUM 142 mmol/L (136-145); UREA NITROGEN, BLOOD 24 mg/dL (7-18)
[2017-04-02] MEDS ORDERED: DENO60DI SQ (15:06)
[2017-04-02] MEDS ORDERED: CRAN425C PO (15:06)
[2017-04-02] MEDS ORDERED: CHOL100040 PO (15:06)
[2017-04-02] MEDS ORDERED: ACET325T53 PO (15:06)
[2017-04-02] MEDS ORDERED: CALC500T71 PO (15:06)
[2017-04-02] MEDS ORDERED: TRAM50TA2 PO (15:06)
[2017-04-02 16:00] VITALS: BP 141/77
[2017-04-02] MEDS: IV D5/ 0.9% NACL 1,000 ML IV PRN (16:00)
[2017-04-02] MEDS ORDERED: ONDANSETRON HCL/PF 4 MG/2 ML VIAL IV PRN (16:00)
[2017-04-02] MEDS ORDERED: ACETAMINOPHEN 325 MG TABLET PO PRN ×2 (16:00→17:00)
[2017-04-02] MEDS ORDERED: Medication Not On Formulary EA (Cranberry Extract (Cranberry) 425 MG) PO SCH (17:00)
[2017-04-02] MEDS: DIVALPROEX SODIUM 250 MG TABLET.DR PO SCH (17:34)
[2017-04-02] MEDS: CALCIUM CARBONATE (1250) 500 MG TABLET PO SCH (17:34)
[2017-04-02] MEDS: ASPIRIN 81 MG TAB.CHEW PO SCH (17:34)
[2017-04-02] MEDS: CHOLECALCIFEROL 1,000 UNIT TABLET (VIT D3) PO SCH (17:34)
[2017-04-02] MEDS: QUETIAPINE FUMARATE 25 MG TABLET PO SCH (17:34)
[2017-04-02] MEDS: MORPHINE SULFATE INJ 2 MG/ML DISP.SYRIN IV PRN (19:54)
[2017-04-02 20:00] VITALS: BP 136/63
[2017-04-02] MEDS: TRAMADOL HCL 50 MG TABLET PO PRN (20:28)
[2017-04-02] MEDS: DONEPEZIL 5 MG TABLET PO SCH (21:30)
[2017-04-03] MEDS: IV D5/ 0.9% NACL 1,000 ML IV PRN ×2 (06:20→22:54)
[2017-04-03 08:00] VITALS: BP 128/70
[2017-04-03 08:04] LABS: CALCIUM, SERUM 8.4 mg/dL (8.5-10.1); CARBON DIOXIDE 25 mmol/L (21-32); CHLORIDE 109 mmol/L (98-107); CREATININE 1.4 mg/dL (0.6-1.3); GLUCOSE 155 mg/dL (74-106); SODIUM SERUM 143 mmol/L (136-145); UREA NITROGEN, BLOOD 31 mg/dL (7-18)
[2017-04-03] MEDS: QUETIAPINE FUMARATE 25 MG TABLET PO SCH ×3 (08:07→16:40)
[2017-04-03] MEDS: ASPIRIN 81 MG TAB.CHEW PO SCH (08:07)
[2017-04-03] MEDS: DIVALPROEX SODIUM 250 MG TABLET.DR PO SCH ×2 (08:07→16:40)
[2017-04-03] MEDS: CALCIUM CARBONATE (1250) 500 MG TABLET PO SCH (08:07)
[2017-04-03] MEDS: CHOLECALCIFEROL 1,000 UNIT TABLET (VIT D3) PO SCH (08:08)
[2017-04-03] MEDS ORDERED: FENTANYL PF 100MCG/2ML AMPUL ONE (12:14)
[2017-04-03] MEDS ORDERED: CLINDAMYCIN 900 MG/6 ML VIAL ONE (12:15)
[2017-04-03] MEDS ORDERED: BUPIVACAINE 0.5 % PF 150 MG/30 ML VIAL ONE (12:40)
[2017-04-03] MEDS ORDERED: BACITRACIN 50000 UNITS/VIAL ONE (12:40)
[2017-04-03 16:00] VITALS: BP 107/58
[2017-04-03] MEDS ORDERED: ANESTHESIA TRAY IN PYXIS 1 EA TRAY MC ONE (16:27)
[2017-04-03] MEDS: TRAMADOL HCL 50 MG TABLET PO PRN ×2 (16:41→21:27)
[2017-04-03 20:00] VITALS: BP 107/58
[2017-04-03] MEDS: DONEPEZIL 5 MG TABLET PO SCH (21:27)
[2017-04-04 08:00] VITALS: BP 112/55
[2017-04-04] MEDS: ASPIRIN 81 MG TAB.CHEW PO SCH (08:19)
[2017-04-04] MEDS: CHOLECALCIFEROL 1,000 UNIT TABLET (VIT D3) PO SCH (08:19)
[2017-04-04] MEDS: QUETIAPINE FUMARATE 25 MG TABLET PO SCH ×3 (08:19→16:08)
[2017-04-04] MEDS: DIVALPROEX SODIUM 250 MG TABLET.DR PO SCH ×2 (08:19→16:08)
[2017-04-04] MEDS: CALCIUM CARBONATE (1250) 500 MG TABLET PO SCH (08:24)
[2017-04-04] MEDS: TRAMADOL HCL 50 MG TABLET PO PRN (10:02)
[2017-04-04 16:00] VITALS: BP 122/54
[2017-04-04 20:00] VITALS: BP 105/51
[2017-04-04] MEDS: DONEPEZIL 5 MG TABLET PO SCH (22:07)
[2017-04-05] VITALS (11 sets, daily range): BP systolic 94–143; BP diastolic 43–64
[2017-04-05 08:00] LABS: BASOPHILS % (AUTO) 0.2 % (0.0-2.0); EOSINOPHILS # (AUTO) 0.2 /CMM (0.0-0.7); EOSINOPHILS % (AUTO) 1.8 % (0.0-6.0); HEMATOCRIT 23 % (33-45); LYMPHOCYTES # (AUTO) 1.3 /CMM (0.8-4.8); LYMPHOCYTES % (AUTO) 11.1 % (20.0-44.0); MEAN CORPUSCULAR HEMOGLOBIN 31 PG (26.0-33.0); MEAN CORPUSCULAR HGB CONC 34 g/dl (31.0-36.0); MEAN CORPUSCULAR VOLUME 91 fL (82-100); MONOCYTES # (AUTO) 1.1 /CMM (0.1-1.30); MONOCYTES % (AUTO) 9.7 % (2.0-12.0); NEUTROPHILS # (AUTO) 9.2 /CMM (1.8-8.9); NEUTROPHILS % (AUTO) 77.2 % (43.0-81.0); PLATELET COUNT (AUTO) 126 /CMM (150-450); RDW COEFFICIENT OF VARIATION 14.3 (11.5-15.0); RED BLOOD CELL COUNT(AUTO) 2.57 MIL/uL (4.0-5.2); WHITE BLOOD COUNT (AUTO) 11.9 K/uL (4.3-11.0)
[2017-04-05 08:14] LABS: CALCIUM, SERUM 8.7 mg/dL (8.5-10.1); CARBON DIOXIDE 25 mmol/L (21-32); CHLORIDE 111 mmol/L (98-107); CREATININE 1.1 mg/dL (0.6-1.3); GLUCOSE 112 mg/dL (74-106); POTASSIUM 4.4 mmol/L (3.5-5.1); SODIUM SERUM 144 mmol/L (136-145); UREA NITROGEN, BLOOD 36 mg/dL (7-18)
[2017-04-05] MEDS: QUETIAPINE FUMARATE 25 MG TABLET PO SCH ×3 (08:16→17:10)
[2017-04-05] MEDS: CHOLECALCIFEROL 1,000 UNIT TABLET (VIT D3) PO SCH (08:16)
[2017-04-05] MEDS: ASPIRIN 81 MG TAB.CHEW PO SCH (08:16)
[2017-04-05] MEDS: DIVALPROEX SODIUM 250 MG TABLET.DR PO SCH ×2 (08:16→17:10)
[2017-04-05] MEDS: CALCIUM CARBONATE (1250) 500 MG TABLET PO SCH (08:17)
[2017-04-05] MEDS: TRAMADOL HCL 50 MG TABLET PO PRN (08:17)
[2017-04-05] MEDS: MORPHINE SULFATE INJ 2 MG/ML DISP.SYRIN IV PRN (11:50)
[2017-04-06 00:04] VITALS: BP 106/36
[2017-04-06] MEDS: DONEPEZIL 5 MG TABLET PO SCH ×2 (00:43→21:28)
[2017-04-06 06:57] LABS: BASOPHILS % (AUTO) 0.3 % (0.0-2.0); EOSINOPHILS # (AUTO) 0.4 /CMM (0.0-0.7); EOSINOPHILS % (AUTO) 3.9 % (0.0-6.0); HEMATOCRIT 30 % (33-45); HEMOGLOBIN 10.3 g/dL (11.5-14.8); LYMPHOCYTES # (AUTO) 1.1 /CMM (0.8-4.8); LYMPHOCYTES % (AUTO) 11.4 % (20.0-44.0); MEAN CORPUSCULAR HEMOGLOBIN 31 PG (26.0-33.0); MEAN CORPUSCULAR HGB CONC 34 g/dl (31.0-36.0); MEAN CORPUSCULAR VOLUME 91 fL (82-100); MONOCYTES # (AUTO) 0.8 /CMM (0.1-1.30); MONOCYTES % (AUTO) 8.9 % (2.0-12.0); NEUTROPHILS # (AUTO) 7.2 /CMM (1.8-8.9); NEUTROPHILS % (AUTO) 75.5 % (43.0-81.0); PLATELET COUNT (AUTO) 113 /CMM (150-450); RDW COEFFICIENT OF VARIATION 14.7 (11.5-15.0); RED BLOOD CELL COUNT(AUTO) 3.36 MIL/uL (4.0-5.2); WHITE BLOOD COUNT (AUTO) 9.5 K/uL (4.3-11.0)
[2017-04-06 07:13] LABS: CALCIUM, SERUM 8.6 mg/dL (8.5-10.1); CARBON DIOXIDE 23 mmol/L (21-32); CHLORIDE 115 mmol/L (98-107); CREATININE 0.9 mg/dL (0.6-1.3); GLUCOSE 93 mg/dL (74-106); POTASSIUM 4.1 mmol/L (3.5-5.1); SODIUM SERUM 147 mmol/L (136-145); UREA NITROGEN, BLOOD 32 mg/dL (7-18)
[2017-04-06 08:00] VITALS: BP 150/69
[2017-04-06] MEDS: DIVALPROEX SODIUM 250 MG TABLET.DR PO SCH ×2 (08:07→16:03)
[2017-04-06] MEDS: CALCIUM CARBONATE (1250) 500 MG TABLET PO SCH (08:07)
[2017-04-06] MEDS: TRAMADOL HCL 50 MG TABLET PO PRN (08:07)
[2017-04-06] MEDS: QUETIAPINE FUMARATE 25 MG TABLET PO SCH ×3 (08:07→16:03)
[2017-04-06] MEDS: ASPIRIN 81 MG TAB.CHEW PO SCH (08:07)
[2017-04-06] MEDS: CHOLECALCIFEROL 1,000 UNIT TABLET (VIT D3) PO SCH (08:07)
[2017-04-06 16:00] VITALS: BP 144/63
[2017-04-06] MEDS ORDERED: RIVAROXABAN 10 MG TABLET PO SCH (17:00)
[2017-04-06 19:53] VITALS: BP 129/56
[2017-04-06 20:07] VITALS: BP 129/56
[2017-04-07 07:20] LABS: BASOPHILS % (AUTO) 0.2 % (0.0-2.0); EOSINOPHILS # (AUTO) 0.2 /CMM (0.0-0.7); EOSINOPHILS % (AUTO) 2.7 % (0.0-6.0); HEMATOCRIT 29 % (33-45); HEMOGLOBIN 9.7 g/dL (11.5-14.8); LYMPHOCYTES # (AUTO) 1.1 /CMM (0.8-4.8); MEAN CORPUSCULAR HEMOGLOBIN 30 PG (26.0-33.0); MEAN CORPUSCULAR HGB CONC 34 g/dl (31.0-36.0); MEAN CORPUSCULAR VOLUME 90 fL (82-100); MONOCYTES # (AUTO) 0.8 /CMM (0.1-1.30); MONOCYTES % (AUTO) 8.9 % (2.0-12.0); NEUTROPHILS # (AUTO) 6.9 /CMM (1.8-8.9); NEUTROPHILS % (AUTO) 76.2 % (43.0-81.0); PLATELET COUNT (AUTO) 119 /CMM (150-450); RDW COEFFICIENT OF VARIATION 15.2 (11.5-15.0); RED BLOOD CELL COUNT(AUTO) 3.21 MIL/uL (4.0-5.2); WHITE BLOOD COUNT (AUTO) 9.1 K/uL (4.3-11.0)
[2017-04-07 08:00] VITALS: BP 146/67
[2017-04-07] MEDS: CHOLECALCIFEROL 1,000 UNIT TABLET (VIT D3) PO SCH (08:33)
[2017-04-07] MEDS: CALCIUM CARBONATE (1250) 500 MG TABLET PO SCH (08:41)
[2017-04-07] MEDS: DIVALPROEX SODIUM 250 MG TABLET.DR PO SCH (08:41)
[2017-04-07] MEDS: QUETIAPINE FUMARATE 25 MG TABLET PO SCH (08:41)
== END 2017-04-07 13:30 | DRG 480 ==
LOC: ER 12:58 → MED 14:11
PROVIDERS: ADMIT Legal Medicine; ATTEND Legal Medicine
PROC: 0QS604Z Reposition Right Upper Femur with Internal Fixation Device, Open Approach (ICD-10-PCS; principal; 2017-04-03 12:25)
PROC: 30233N1 Transfusion of Nonautologous Red Blood Cells into Peripheral Vein, Percutaneous Approach (ICD-10-PCS; 2017-04-05)
PROC: 05H633Z Insertion of Infusion Device into Left Subclavian Vein, Percutaneous Approach (ICD-10-PCS; 2017-04-05)
PROC: B547ZZA Ultrasonography of Left Subclavian Vein, Guidance (ICD-10-PCS; 2017-04-05)
DX: S72.141A Displaced intertrochanteric fracture of right femur, initial encounter for closed fracture (principal); N17.0 Acute kidney failure with tubular necrosis; D69.6 Thrombocytopenia, unspecified; D50.0 Iron deficiency anemia secondary to blood loss (chronic); F03.90 Unspecified dementia, unspecified severity, without behavioral disturbance, psychotic disturbance, mood disturbance, and anxiety; W07.XXXA Fall from chair, initial encounter; Y92.129 Unspecified place in nursing home as the place of occurrence of the external cause; I10 Essential (primary) hypertension; I25.10 Atherosclerotic heart disease of native coronary artery without angina pectoris; E55.9 Vitamin D deficiency, unspecified; M81.0 Age-related osteoporosis without current pathological fracture
CPT/HCPCS: 36415; 36569; 71010-TC; 73501; 73700-TC; 80048-TC; 85025-TC; 85027-TC; 85730-TC; 86850-TC; 86921-TC; 97110-TC; 97112-TC; 97530-TC; A4606; A6209; A6402; C1713; J2270; J2370; J2405; J2704; J3010; J3490; J7040; J7042; J7050; P9016-BL; Z7610